=== PATIENT | female | born 1970 | race Hispanic/Latino ===

== ENCOUNTER 2017-04-07 11:38 | Emergency (ER) | payer OTHER ==
[2017-04-07 11:38] VITALS: BMI 25.8
[2017-04-07 11:41] VITALS: BP 132/88; PULSE 84; RESP 18; TEMP 97.8; O2SAT 98
--- NOTE | 2017-04-07 11:59 | C.PDOC ---
History Of Present Illness 47 y/o female c/o cough with yellow sputum, subjective fever, sore throat, myalgias and loss of voice x 2 days. pt taking ibuprofen with some relief. no known sick contacts. denies cp and sob. Time Seen by Provider: 04/07/17 11:44 Chief Complaint (Nursing): ENT Problem History Per: Patient History/Exam Limitations: no limitations Onset/Duration Of Symptoms: Days (2) Current Symptoms Are (Timing): Still Present Location Of Pain: Throat, Diffuse Myalgias Sick Contacts (Context): None Associated Symptoms: Fever, Chills, Sore Throat, Cough, Sputum, Myalgias. denies: Vomiting, Diarrhea Past Medical History Reviewed: Historical Data, Nursing Documentation, Vital Signs Vital Signs: Last Vital Signs Temp 97.8 F 04/07/17 11:39 Pulse 84 04/07/17 11:39 Resp 18 04/07/17 11:39 BP 132/88 04/07/17 11:39 Pulse Ox 98 04/07/17 13:40 - Medical History PMH: Denies: Chronic Kidney Disease Other PMH: cva, breast cancer Surgical History: Tonsillectomy Other Surgeries: breast surgery - [facility] Procedures BILAT EXTEND SIMP MASTEC (10/30/13) BILATERAL BREAST IMPLANT (04/27/14) CENTRAL VENOUS CATHETER PLACEMENT WITH GUIDANCE (01/27/14) FREE SKIN GRAFT NEC (11/09/14) INSERTION OF BREAST TISSUE COMPUTER APPLICATIONS ENGINEER (11/24/13) LOCAL EXCIS BREAST LES (11/24/13) MAMMOPLASTY NEC (11/09/14) PERCUTAN NEEDLE BIOPSY OF BREAST (10/15/13) REMOV THOR THER DEV NEC (03/15/14) REMOVAL OF BREAST TISSUE EXPANDERS (04/27/14) Family History: States: Unknown Family Hx - Social History Hx Tobacco Use: No Hx Alcohol Use: No Hx Substance Use: No - Immunization History Hx Tetanus Toxoid Vaccination: No Hx Influenza Vaccination: No Hx Pneumococcal Vaccination: No Review Of Systems Constitutional: Positive for: Fever, Chills Eyes: Negative for: Conjunctivae Inflammation ENT: Positive for: Throat Pain. Negative for: Ear Pain, Nose Pain, Mouth Pain Cardiovascular: Negative for: Chest Pain, Palpitations Respiratory: Positive for: Cough, Sputum Gastrointestinal: Negative for: Nausea, Vomiting, Abdominal Pain Skin: Negative for: Rash Physical Exam - Physical Exam Appears: Non-toxic, No Acute Distress, Other (appears uncomfortable) Skin: Warm, Dry Head: Atraumatic, Normacephalic Eye(s): bilateral: Normal Inspection Ear(s): Bilateral: Normal Nose: Normal, No Discharge Tongue: Normal Appearing Lips: Normal Appearing Gingiva: Normal Appearing Throat: No Exudate, Other (lateral/posterior pharynx erythematous on left side) Neck: Normal ROM Lymphatic: Adenopathy (mildly tender and enlarged bilateral submandibular nodes) Chest: No Deformity, No Tenderness Cardiovascular: Rhythm Regular, No Murmur Respiratory: Normal Breath Sounds, No Accessory Muscle Use, No Rales, No Rhonchi , No Wheezing Neurological/Psych: Oriented x3, Normal Speech, Normal Cognition ED Course And Treatment O2 Sat by Pulse Oximetry: 98 Medical Decision Making Medical Decision Makin47 y/o female with sore throat, laryngitis and uri symptoms; check rapid strep Disposition Counseled Patient/Family Regarding: Studies Performed, Diagnosis, Need For Followup, Rx Given - Disposition Referrals: Joe Hutchison MD [Staff Provider] - Disposition: HOME/ ROUTINE Disposition Time: 11:57 Condition: STABLE Additional Instructions: Gargle with warm salty water several times a day. Tylenol for pain or fever. Voice rest for several days. Follow up with PMD in 1-2 days. Return to ED for any worsening symptoms. Prescriptions: Azithromycin [Z-Socrates] 250 mg PO DAILY #6 tab Instructions: Laryngitis (ED), Upper Respiratory Infection (ED) Forms: Work Excuse - Clinical Impression Clinical Impression: Upper respiratory infection, Laryngitis
== END 2017-04-07 12:16 | disposition home or self-care (01) ==
LOC: C.ER 11:38
DX: J04.0 Acute laryngitis (principal); J06.9 Acute upper respiratory infection, unspecified

== ENCOUNTER 2018-12-03 07:42 | Outpatient (CLI) | payer OTHER | END 2018-12-03 07:43 | disposition home or self-care (01) | LOC: C.USIC 07:42 | DX: Z01.419 Encounter for gynecological examination (general) (routine) without abnormal findings (principal); C50.911 Malignant neoplasm of unspecified site of right female breast; N83.202 Unspecified ovarian cyst, left side; N83.201 Unspecified ovarian cyst, right side ==

== ENCOUNTER 2019-02-13 07:52 | Outpatient (CLI) | payer OTHER | END 2019-02-13 07:53 | disposition home or self-care (01) | LOC: C.CARD 07:52 | DX: Z01.810 Encounter for preprocedural cardiovascular examination (principal) ==

== ENCOUNTER 2019-03-14 08:06 | Outpatient (CLI) | payer OTHER | END 2019-03-14 08:07 | disposition home or self-care (01) | LOC: C.LAB 08:06 | DX: Z00.00 Encounter for general adult medical examination without abnormal findings (principal) ==